=== PATIENT | female | born 1975 | race Two or more races ===

== ENCOUNTER 2024-04-03 18:30 | Emergency (ER) | payer MEDICAID, OTHER ==
[~2024-04-03] VITALS: Ht 165.1 cm; Wt 77.0 kg
[2024-04-03 18:47] VITALS: TEMP 98.2
[2024-04-03] MEDS: ACETAMINOPHEN 500 MG TABLET PO ONE (21:54)
[2024-04-04] MEDS ORDERED: TRAM50TA5 PO (00:28)
[2024-04-04 00:53] VITALS: BP 141/77; PULSE 65; RESP 18; O2SAT 99
== END 2024-04-04 00:56 | disposition home or self-care (01) ==
LOC: EMS 18:30
DX: M25.511 Pain in right shoulder (principal); M25.531 Pain in right wrist; Z98.890 Other specified postprocedural states
CPT/HCPCS: 72100; 99284; 73030-TC; 73110-TC; Z7502; Z7610